=== PATIENT | female | born 1975 | race Two or more races ===

== ENCOUNTER 2018-05-07 11:23 | Emergency (ER) | END 2018-05-07 13:59 | disposition home or self-care (01) ==

== ENCOUNTER 2019-04-20 13:06 | Day surgery (SDC) | payer BC ==
[~2019-04-20] VITALS: Ht 165.1 cm; Wt 114.5 kg
[~2019-04-20 13:06] MED LIST: IRON; TYLENOL; vit d
[2019-04-20 14:55] VITALS: Ht 165.1 cm; Wt 114.5 kg
[2019-04-20 16:57] VITALS: BP 135/67; PULSE 79; RESP 18
--- NOTE | 2019-04-20 17:37 | PREAC ---
Date/Time of Note Date/Time of Note DATE: 04/20/19 TIME: 17:35 Anesthesia Eval and Record Evaluation Time Pre-Procedure Interview DATE: 04/20/19 TIME: 17:35 Age 43 Sex female NPO: 8 hrs Preoperative diagnosis Heartburn Planned procedure EGD Past Medical History Past Medical History: Includes GI: GERD, Morbid obesity Psych: Anxiety Surgery & Anesthesia Issues No known issue Meds Anticoagulation: No Beta Haritha within 24 hr: No Reason Beta Haritha not given: Pt. not on B-Haritha Reported Medications [Iron] No Conflict Check 04/20/19 [vit d] No Conflict Check 04/20/19 [none] No Conflict Check 04/20/19 Discontinued Reported Medications [Tylenol] No Conflict Check 12/18/10 Meds reviewed: Yes Allergies Coded Allergies: amoxicillin (Verified Allergy, Mild, RASH, 04/20/19) moxifloxacin (Verified Allergy, Mild, 04/20/19) FAITING FEELING erythromycin base (Verified Adverse Reaction, Mild, VOMITING, 04/20/19) Allergies Reviewed: Yes Labs/Studies Labs Reviewed: Reviewed by anesthesiologist test: Negative Studies: ECG Pre-procedure Exam Last vitals Vital Signs Date Temp Pulse Resp B/P (MAP) Pulse Ox O2 O2 Flow FiO2 Time Delivery Rate 04/20/19 79 18 135/67 99 Room Air 16:57 (89) Airway: Adequate mouth opening, Adequate thyromental dist Mallampati: Mallampati II Teeth: Normal Lung: Normal Heart: Normal ASA Physical Status ASA physical status: 2 Emergency: None Planned Anesthetic General/MAC: MAC Planned Pain Management Parenteral pain med Pre-operative Attestations Prior to commencing anesthesia and surgery, the patient was re-evaluated, there was verification of: *The patient's identity *The results of appropriate recent lab work and preoperative vital signs *The above evaluation not changing prior to induction *Anesthetic plan, risk benefits, alternative and complications discussed with patient/family; questions answered; patient/family understands, accepts and wishes to proceed. ROBBIN RIVERA MD Apr 20, 2019 17:37
[2019-04-20] MEDS ORDERED: LIDOCAINE 2% (SDV) 5 ML INJ ONE (17:38)
[2019-04-20] MEDS ORDERED: PROPOFOL 40 ML ONE (17:38)
--- NOTE | 2019-04-20 17:55 | PAC ---
Date/Time of Note Date/Time of Note DATE: 04/20/19 TIME: 17:55 Post-Anesthesia Notes Post-Anesthesia Note Last documented vital signs Vital Signs Date Temp Pulse Resp B/P (MAP) Pulse Ox O2 O2 Flow FiO2 Time Delivery Rate 04/20/19 79 18 135/67 99 Room Air 16:57 (89) Activity: WNL Respiratory function: WNL Cardiovascular function: WNL Mental status: Baseline Pain reasonably controlled: Yes Hydration appropriate: Yes Nausea/Vomiting absent: Yes Comments BP:118/56, P:78, Spo2:100%, T:98,9 ROBBIN RIVERA MD Apr 20, 2019 17:55
[2019-04-20 18:20] VITALS: BP 136/73; PULSE 90; RESP 16
== END 2019-04-20 18:46 | disposition home or self-care (01) ==
LOC: GIL 13:06
PROVIDERS: ATTEND Internal Medicine Gastroenterology
DX: K29.50 Unspecified chronic gastritis without bleeding (principal); B96.81 Helicobacter pylori [H. pylori] as the cause of diseases classified elsewhere; K25.9 Gastric ulcer, unspecified as acute or chronic, without hemorrhage or perforation; K20.9 Esophagitis, unspecified; K29.80 Duodenitis without bleeding; E66.01 Morbid (severe) obesity due to excess calories; Z68.41 Body mass index [BMI] 40.0-44.9, adult
CPT/HCPCS: 84703; 88305; 88312